=== PATIENT | male | born 1945 | race Caucasian/White ===

== ENCOUNTER 2020-08-25 21:09 | Emergency (ER) | payer OTHER, BC ==
--- OUTSIDE RECORDS SUMMARY | 2020-08-25 21:11 | XMS REPORT | Continuity of Care Document ---
:1945 Author Organization [facility] t Address [address] [place] [address] Care Team Providers Name Role Phone Camryn Manning MD Attending Clinician Problems This patient has no known problems. Allergies, Adverse Reactions, Alerts This patient has no known allergies or adverse reactions. Medications This patient has no known medications. Procedures This patient has no known procedures. Encounters Start End Encounter Admission Attending Care Care Encounter Source Date/Time Date/Time Type Type Clinicians Facility Department ID 2018-09-09 2018-09-09 Office SHANNON Manning [id number] 08:54:44 14:37:39 Visit [facility] [id number] [place] [id number] [place] [id number] Results This patient has no known results.
--- NOTE | 2020-08-25 23:44 | ER ---
Nurse's Notes [facility] Name: Tyrel Ritter Age: 74 yrs Sex: Male : 1945 Arrival Date: 08/25/2020 Time: 21:25 Bed 15 Private MD: Diagnosis: Fever, unspecified Presentation: 08/25 21:45 Chief complaint: Patient states: body aches and chills x 1.5 days. Fever tonight at ca1 102.4F, took NyQuil. Denies cough, congestion. Denies N/V/D. Denies urinary s/s. Coronavirus screen: Client denies travel out of the [place] in the last 14 days. chills, fever, muscle pain, Client presents with at least one sign or symptom that may indicate coronavirus-19. Standard/surgical mask placed on the client. Provider contacted for isolation considerations. Ebola Screen: Patient negative for fever greater than or equal to 101.5 degrees Fahrenheit, and additional compatible Ebola Virus Disease symptoms Patient denies exposure to infectious person. Patient denies travel to an Ebola-affected area in the 21 days before illness onset. No symptoms or risks identified at this time. Initial Sepsis Screen: Does the patient meet any 2 criteria? No. Patient's initial sepsis screen is negative. Does the patient have a suspected source of infection? No. Patient's initial sepsis screen is negative. Risk Assessment: Do you want to hurt yourself or someone else? Patient reports no desire to harm self or others. Onset of symptoms was August 25, 2020. 21:45 Method Of Arrival: Ambulatory ca1 21:45 Acuity: MERARY 4 ca1 Triage Assessment: 23:30 General: Behavior is calm, cooperative, appropriate for age. bs2 Historical: - Allergies: 21:48 PENICILLINS; ca1 - PMHx: 21:48 Hypertensive disorder; GERD; ca1 - Immunization history:: Adult Immunizations up to date, Client reports receiving the 2nd dose of the Covid vaccine, Client reports receiving the 1st dose of the Covid vaccine, Pneumococcal vaccine is up to date, Flu vaccine is up to date. - Social history:: Smoking status: Patient denies any tobacco usage or history of. - Family history:: not pertinent. - Hospitalizations: : No recent hospitalization is reported. Screenin:30 Abuse screen: Denies threats or abuse. Denies injuries from another. Nutritional bs2 screening: No deficits noted. Tuberculosis screening: No symptoms or risk factors identified. Fall Risk None identified. Assessment: 23:30 General: Appears in no apparent distress. comfortable, well groomed, well developed, bs2 well nourished, pt states he just wants to make sure he does not have covid because he has been to 3 funerals in the past few days and is having chills and fevers on and off. . Pain: Denies pain. Cardiovascular: No deficits noted. Respiratory: No deficits noted. GI: No deficits noted. : No deficits noted. EENT: No deficits noted. Derm: No deficits noted. Musculoskeletal: No deficits noted. Vital Signs: 21:45 BP 124 / 83; Pulse 89; Resp 18 S; Temp 98.7(O); Pulse Ox 96% on R/A; Weight 85.28 kg ca1 (R); Height 5 ft. 10 in. (177.80 cm); Pain 5/10; 23:55 BP 123 / 86 RA Sitting (auto/reg); Pulse 76 MON; Resp 16 S; Temp 98.2(O); Pulse Ox 100% bs2 on R/A; Pain 0/10; 21:45 Body Mass Index 26.97 (85.28 kg, 177.80 cm) ca1 ED Course: 21:25 Patient arrived in ED. cf2 21:48 Triage completed. ca1 21:48 Arm band placed on right wrist. ca1 23:27 Lex Peck MD is Attending Physician. rn 23:30 Patient has correct armband on for positive identification. Bed in low position. bs2 23:30 No provider procedures requiring assistance completed. IV discontinued. bs2 08/26 00:10 Sejal Delgadillo, RN is Primary Nurse. bs2 Administered Medications: No medications were administered Outcome: 08/25 23:43 Discharge ordered by . rn 23:55 Discharged to home ambulatory, with family. bs2 23:55 Condition: improved 23:55 Discharge instructions given to patient, significant other, Instructed on discharge instructions, follow up and referral plans. 08/26 00:14 Patient left the ED. bs2 Signatures: Lex Peck MD MD rn Acob, Amie RN RN ca1 Jeancarlos Minor cf2 Sejal Delgadillo, RN RN bs2 Corrections: (The following items were deleted from the chart) 08/25 21:49 21:48 Allergies: No Known Allergies; ca1 ca1
--- NOTE | 2020-08-25 23:44 | EDPHYS ---
Physician Documentation [facility] Name: Tyrel Ritter Age: 74 yrs Sex: Male : 1945 Arrival Date: 08/25/2020 Time: :25 Bed 15 Private MD: ED Physician Lex Peck HPI: 08/25 23:38 This 74 yrs old Male presents to ER via Ambulatory with complaints of Fever, rn COLD SWEATS, BODY ACHES. 23:38 The patient reports fever, not measured (subjective). Onset: The symptoms/episode rn began/occurred last night. Modifying factors: there are no obvious modifying factors. Associated signs and symptoms: Pertinent positives: chills, Pertinent negatives: abdominal pain, altered mental status, chest pain, cough, diarrhea, earache, headache, hemoptysis, runny nose, sinus congestion, sinus drainage, skin rash, shortness of breath, sore throat, swelling, vomiting. Severity of symptoms: At their worst the symptoms were mild in the emergency department the symptoms have improved. The patient has not experienced similar symptoms in the past. The patient has been recently seen by a physician:. Reports fever chills and cold sweats that began last night. states that they have been to 2 funerals in the last 3 days. They are both Covid vaccinated. Patient denies any other symptoms like a pinpoint location of infection. Has prostate problems but denies any urinary symptoms and states full work-up by PCP recently with negative urine this past week. States here to make sure was not Covid, is happy that Covid is negative, and requests that he be discharged home without further evaluation.. Historical: - Allergies: 21:48 PENICILLINS; ca1 - PMHx: 21:48 Hypertensive disorder; GERD; ca1 - Immunization history:: Adult Immunizations up to date, Client reports receiving the 2nd dose of the Covid vaccine, Client reports receiving the 1st dose of the Covid vaccine, Pneumococcal vaccine is up to date, Flu vaccine is up to date. - Social history:: Smoking status: Patient denies any tobacco usage or history of. - Family history:: not pertinent. - Hospitalizations: : No recent hospitalization is reported. ROS: 23:38 Constitutional: Positive for fever and chills Eyes: Negative for injury, pain, redness, rn and discharge, ENT: Negative for injury, pain, and discharge, Neck: Negative for injury, pain, and swelling, Cardiovascular: Negative for chest pain, palpitations, and edema, Respiratory: Negative for shortness of breath, cough, wheezing, and pleuritic chest pain, Abdomen/GI: Negative for abdominal pain, nausea, vomiting, diarrhea, and constipation, Back: Negative for injury and pain, : Negative for injury, bleeding, discharge, and swelling, MS/Extremity: Negative for injury and deformity, Skin: Negative for injury, rash, and discoloration, Neuro: Negative for headache, weakness, numbness, tingling, and seizure. Exam: 23:38 Constitutional: This is a well developed, well nourished patient who is awake, alert, rn and in no acute distress. Head/Face: Normocephalic, atraumatic. Eyes: Conjunctiva and sclera are non-icteric and not injected. Cornea within normal limits. Periorbital areas with no swelling, redness, or edema. ENT: No stridor Neck: Trachea midline, no masses palpated, and no cervical lymphadenopathy. Supple, full range of motion without nuchal rigidity, or vertebral point tenderness. No Meningismus. Cardiovascular: Regular rate and rhythm. No pulse deficits. Respiratory: No increased work of breathing, no retractions or nasal flaring. Abdomen/GI: Soft, non-tender Skin: Warm, dry, no evidence of cellulitis or rash MS/ Extremity: Pulses equal, no cyanosis. Neuro: Awake and alert, GCS 15, oriented to person, place, time, and situation. Motor strength 5/5 in all extremities. Sensory grossly intact. Vital Signs: 21:45 BP 124 / 83; Pulse 89; Resp 18 S; Temp 98.7(O); Pulse Ox 96% on R/A; Weight 85.28 kg ca1 (R); Height 5 ft. 10 in. (177.80 cm); Pain 5/10; 23:55 BP 123 / 86 RA Sitting (auto/reg); Pulse 76 MON; Resp 16 S; Temp 98.2(O); Pulse Ox 100% bs2 on R/A; Pain 0/10; 21:45 Body Mass Index 26.97 (85.28 kg, 177.80 cm) ca1 MDM: 23:27 Patient medically screened. rn 23:38 Differential diagnosis: viral Infection, bacterial infection, UTI. Data reviewed: vital rn signs, nurses notes, lab test result(s), and as a result, I will discharge patient. Counseling: I had a detailed discussion with the patient and/or guardian regarding: the historical points, exam findings, and any diagnostic results supporting the discharge/admit diagnosis, lab results, the need for outpatient follow up, to return to the emergency department if symptoms worsen or persist or if there are any questions or concerns that arise at home. Special discussion: I discussed with the patient/guardian in detail that at this point there is no indication for admission to the hospital. It is understood, however, that if the symptoms persist or worsen the patient needs to return immediately for re-evaluation. ED course: Covid negative, flu negative. Patient was here for Covid testing. No focal symptoms to suggest etiology of symptoms. Recommended at least urine study given prostate problems in the past. Patient declines and asks to be discharged home. Stable vital signs. Will follow up with PCP and given return precautions. 08/25 21:53 Order name: Flu; Complete Time: 23:28 ca1 08/25 23:22 Order name: SARS-COV-2 RT PCR; Complete Time: 23:28 EDMS Administered Medications: No medications were administered Disposition Summary: 08/25/20 23:43 Discharge Ordered Location: Home rn Problem: new rn Symptoms: have improved rn Condition: Stable rn Diagnosis - Fever, unspecified rn Followup: rn - With: Private Physician - When: As needed - Reason: Recheck today's complaints, Re-evaluation by your physician Discharge Instructions: - Discharge Summary Sheet rn - Fever, Adult rn Forms: - Medication Reconciliation Form rn - Thank You Letter rn - Antibiotic oil burner installer - Prescription Opioid Use rn Signatures: Dispatcher [employer] EDMS Lex Peck MD MD rn Acob, Amie RN RN ca1 Corrections: (The following items were deleted from the chart) 21:49 21:48 Allergies: No Known Allergies; ca1 ca1 22:26 21:53 CORONAVIRUS+ ordered. EDSD EDMS
[2020-08-26 00:59] VITALS: BP 124/83; TEMP 98.7; O2SAT 96
== END 2020-08-26 00:14 | disposition home or self-care (01) ==
LOC: ER 21:09
DX: R50.9 Fever, unspecified (principal); I10 Essential (primary) hypertension; Z88.0 Allergy status to penicillin; Z20.822 Contact with and (suspected) exposure to COVID-19
CPT/HCPCS: 87804 ×2; 99281; U0003

== ENCOUNTER 2024-06-11 05:27 | Emergency (ER) | payer MEDICAID, OTHER ==
--- OUTSIDE RECORDS SUMMARY | 2024-06-11 05:29 | XMS REPORT | Clinical Summary ---
Author Name Unknown Organization [facility] Address [address] [place] [address] Care Team Providers Care Bss Solution Architect Name Role Phone Broderick KIRKPATRICK MD, Zurdo Shaver Unavailable Rick Allen MD Primary Care Provider [phone] Allergies Active Allergy Reactions Criticality Noted Date Comments Penicillins Hives,Rash High 03/25/2012 Medications pantoprazole (PROTONIX) 40 mg EC tablet Take by mouth daily. 05/09/2021 Active candesartan-hydr ochlorothiazide (ATACAND HCT) 32-12.5 mg per tablet Take by mouth daily. 08/12/2020 Active aspirin 81 mg chewable tablet Chew daily. Ac tive ascorbic acid (VITAMIN C ORAL) Take by mouth. Active MAGNESIUM ORAL Take by mouth. Active SAW PALMETTO ORAL Take by mouth. Active cyanocobalamin, vitamin B-12, (B-12 DOTS ORAL) Take by mouth. Active cholecalciferol, vitamin D3, (VITAMIN D3 ORAL) Take by mouth. Active Active Problems Problem Noted Date Diagnosed Date History of malignant neoplasm of skin excluding melanoma 05/13/2021 Hypertensive disorder 05/13/2021 Substernal goiter Multinodular goiter Medical History Medical History Date Comments Hypertension 1989 Gastric reflux 2004 Benign prostatic hyperplasia 2019 Social History Tobacco Use Types Packs/Day Years Used Date Smoking Tobacco: Former Cigarettes 0.5 7.8 1 - 09/01/1984 Smokeless Tobacco: Never Alcohol Use Standard Drinks/Week Comments Yes 6 (1 standard drink = 0.6 oz pur e alcohol) Sex and Gender Information Value Date Recorded Sex Assigned at Not on file Legal Sex Male 10:33 AM CDT Gender Identity Not on file Sexual Orientation Not on file Obstetrics History Plan of Treatment Health Maintenance Due Date Last Done Comments Pneumococcal Vaccine: 50+ Years (1 of 1 - PCV) 998 COVID-19 Vaccine ( - season) 2023 Influenza Vaccine (Season Ended) 2024 Care Teams Bss Solution Architect Relationship Specialty Start [place] [id number] [facility] [address] [place] [phone] [email or web address] PCP - External Referring Otolaryngology 04/27/21 Rick Allen MD [address] [place] [phone] [email or web address] PCP - General Head and Neck Surgery 04/27/21
[2024-06-11] MEDS ORDERED: cloNIDine HCL 0.1 MG TAB ONE (06:15)
[2024-06-11 06:29] LABS: PT Prothrombin Time 11.4 SECONDS (10-13.0)
[2024-06-11 06:41] LABS: Absolute Lymphocytes (CBC) 1.1 K/uL (0.7-4.9); Absolute Monocytes 0.3 K/uL (0.1-1.3); Absolute Neutrophil 4.1 K/uL (1.8-8.0); Basophils % 0.1 % (0-1.3); Eosinophils % 0.7 % (0-4.4); Hematocrit 42.5 % (39.6-49.0); Hemoglobin 15.1 g/dL (13.6-17.9); Lymphocytes % 19.7 % (15.3-44.8); MCH 31.1 pg (27.0-35.0); MCHC 35.5 g/dL (32.0-36.0); MCV 87.5 fL (80-100); MPV 8.5 fL (7.6-11.3); Monocytes % 4.7 % (3.3-12.3); Neutrophils % 74.8 % (41.7-73.7); Platelets 173 thou/uL (152-406); RBC Red Blood Cell Count 4.85 M/uL (4.33-5.43); Red Cell Distribution Width 13.4 % (12.1-15.2)
[2024-06-11 06:48] LABS: Albumin 3.6 g/dL (3.4-5.0); Albumin/Globulin Ratio 1.3 (1.1-1.8); Anion Gap 6.6 mEq/L (5.0-15.0); Bilirubin Direct 0.2 mg/dL (0-0.2); Bilirubin Indirect, Calculated 0.5 mg/dL (0.2-0.8); Bilirubin Total 0.7 mg/dL (0.2-1.0); Globulin 2.8 g/dL (2.3-3.5); Magnesium 1.9 mg/dL (1.6-2.4); Potassium 3.6 mEq/L (3.5-5.1); Protein, Total 6.4 g/dL (6.4-8.2); Troponin High Sensitivity 5.6 pg/mL (<58.9)
--- NOTE | 2024-06-11 07:19 | ER ---
Nurse's Notes [facility] Name: Tyrel Ritter Age: 78 yrs Sex: Male : 1945 Arrival Date: 06/11/2024 Time: 05:27 Bed 13 Private MD: Diagnosis: Essential (primary) hypertension;Hypertensive Urgency Presentation: 06/11 05:33 Chief complaint: Patient states: HEADACHE AND ELEVATED BLOOD PRESSURE BP 179/89. ha1 05:33 Coronavirus screen: Client denies travel out of the [place] in the last 14 days. Ebola ha1 Screen: No symptoms or risks identified at this time. Initial Sepsis Screen: Does the patient meet any 2 criteria? No. Patient's initial sepsis screen is negative. Does the patient have a suspected source of infection? No. Patient's initial sepsis screen is negative. Risk Assessment: Do you want to hurt yourself or someone else? Patient reports no desire to harm self or others. Onset of symptoms was June 11, 2024. 05:33 Method Of Arrival: Ambulatory ha1 05:33 Acuity: MERARY 3 ha1 Triage Assessment: 05:33 General: Appears uncomfortable, Behavior is calm, cooperative. Pain: Complains of pain ha1 in HEADACHE Pain currently is 5 out of 10 on a pain scale. Quality of pain is described as aching, pressure, Pain began gradually, 1 hour ago. Neuro: Level of Consciousness is awake, alert, obeys commands, Oriented to person, place, time, situation. Neuro: Reports headache. Cardiovascular: Capillary refill < 3 seconds Patient's skin is warm and dry. Historical: - Allergies: 05:45 PENICILLINS; ha1 - Home Meds: 05:45 Omeprazole Oral [Active]; CARDESARTAN [Active]; Lasix Oral [Active]; ha1 - PMHx: 05:45 GERD; Hypertensive disorder; ha1 - PSHx: 05:45 Cholecystectomy; Knee-Left; ha1 - Immunization history:: Adult Immunizations up to date. - Infectious Disease History:: Denies. - Social history:: Smoking status: Patient/guardian denies using tobacco, the patient reports quitting approximately 50 years ago. - Family history:: not pertinent. Screenin:35 [facility] ED Fall Risk Assessment (Adult) History of falling in the last 3 months, rg5 including since admission No falls in past 3 months (0 pts) Confusion or Disorientation No (0 pts) Intoxicated or Sedated No (0 pts) Impaired Gait No (0 pts) Mobility Assist Device Used No (0 pt) Altered Elimination No (0 pt) Score/Fall Risk Level 0 - 2 = Low Risk Oriented to surroundings, Maintained a safe environment, Hourly rounding (assess needs \T\ fall precautionary measures) done. Abuse screen: Denies threats or abuse. Nutritional screening: No deficits noted. Tuberculosis screening: No symptoms or risk factors identified. Assessment: 05:35 General: Appears in no apparent distress. comfortable, Behavior is calm, cooperative, rg5 appropriate for age. Pain: Complains of pain in head Quality of pain is described as aching. 05:35 Neuro: Level of Consciousness is awake, alert, obeys commands, Oriented to person, rg5 place, time, situation. Cardiovascular: Rhythm is sinus rhythm. Respiratory: Airway is patent Trachea midline Respiratory effort is even, unlabored, Respiratory pattern is regular, symmetrical. GI: Abdomen is round non-distended, Abd is soft and non tender. : No signs and/or symptoms were reported regarding the genitourinary system. EENT: No signs and/or symptoms were reported regarding the EENT system. Derm: Skin is intact, Skin is dry, Skin is normal, Skin temperature is warm. Musculoskeletal: Circulation, motion, and sensation intact. Range of motion: intact in all extremities. 06:31 Reassessment: No changes from previously documented assessment. Patient and/or family rg5 updated on plan of care and expected duration. Pain level reassessed. Patient is alert, oriented x 3, equal unlabored respirations, skin warm/dry/pink. 07:15 Reassessment: Patient appears in no apparent distress at this time. Patient and/or rg5 family updated on plan of care and expected duration. Pain level reassessed. Patient is alert, oriented x 3, equal unlabored respirations, skin warm/dry/pink. Patient states feeling better. Patient states symptoms have improved. 07:35 Reassessment: Patient appears in no apparent distress at this time. Patient and/or db family updated on plan of care and expected duration. Pain level reassessed. Patient is alert, oriented x 3, equal unlabored respirations, skin warm/dry/pink. Vital Signs: 05:33 BP 179 / 89; Pulse 70; Resp 16 S; Temp 98.1; Pulse Ox 98% on R/A; Weight 79.83 kg; ha1 Height 5 ft. 9 in. ; Pain 5/10; 06:25 BP 150 / 80; Pulse 67; Resp 18; Pulse Ox 100% on R/A; Pain 0/10; rg5 06:32 BP 149 / 82; Pulse 66; Resp 17; Pulse Ox 96% on R/A; rg5 07:13 BP 137 / 80; Pulse 69; Resp 16; Pulse Ox 100% ; rg5 05:33 Body Mass Index 25.99 (79.83 kg, 175.26 cm) ha1 05:33 Pain Scale: Adult ha1 06:25 Pain Scale: Adult rg5 [place] Coma Score: 06:34 Eye Response: spontaneous(4). Motor Response: obeys commands(6). Verbal Response: sp4 oriented(5). Total: 15. ED Course: 05:31 Patient arrived in ED. gm2 05:35 Patient has correct armband on for positive identification. Door closed. Noise rg5 minimized. Warm blanket given. 05:35 No provider procedures requiring assistance completed. Inserted saline lock: 20 gauge rg5 in right antecubital area, using aseptic technique. Blood collected. Flushed with 10 mL NS. 05:39 Kenneth Doran MD is Attending Physician. sp4 05:45 Triage completed. ha1 05:47 James Ruiz, SARINA is Primary Nurse. rg5 06:17 XRAY Chest (1 view) In Process Unspecified. EDMS 07:14 Pulse ox on. NIBP on. rg5 07:35 Provided Education on: DISCHARGE AND FOLLOWUP. db 07:35 IV discontinued, intact, bleeding controlled, No redness/swelling at site. db Administered Medications: 06:24 Drug: cloNIDine PO 0.1 mg PO once Route: PO; rg5 06:37 Follow up: Response: No adverse reaction; Blood pressure is lowered rg5 Medication: 05:35 VIS not applicable for this client. rg5 Outcome: 07:19 Discharge ordered by . sp4 07:35 Discharged to home ambulatory, with family, db 07:35 Condition: stable 07:35 Discharge instructions given to patient, family, Instructed on discharge instructions, follow up and referral plans. Prescriptions given X 1, 07:36 Patient left the ED. db Signatures: Dispatcher [employer] EDEllen Villela RN RN ha1 Clarisse Gonzalez RN RN db Kenneth Doran MD MD sp4 Kourtney Carrion 2 James Ruiz RN RN rg5
--- NOTE | 2024-06-11 07:19 | EDPHYS ---
Physician Documentation [facility] Name: Tyrel Ritter Age: 78 yrs Sex: Male : 1945 Arrival Date: 06/11/2024 Time: 05:27 Bed 13 Private MD: ED Physician Kenneth Doran HPI: 06/11 05:39 This 78 yrs old Male presents to ER via Unassigned with complaints of sp4 Headache, High Blood Pressure. 06:32 Patient presents with elevated blood pressure at home 179/88. Reports mild headache. . sp4 Historical: - Allergies: 05:45 PENICILLINS; ha1 - Home Meds: 05:45 Omeprazole Oral [Active]; CARDESARTAN [Active]; Lasix Oral [Active]; ha1 - PMHx: 05:45 GERD; Hypertensive disorder; ha1 - PSHx: 05:45 Cholecystectomy; Knee-Left; ha1 - Immunization history:: Adult Immunizations up to date. - Infectious Disease History:: Denies. - Social history:: Smoking status: Patient/guardian denies using tobacco, the patient reports quitting approximately 50 years ago. - Family history:: not pertinent. ROS: 06:32 Constitutional: Negative for fever, chills, and weight loss, Positive headache, sp4 positive elevated blood pressure. 06:32 All other systems are negative, Exam: 06:32 Constitutional: This is a well developed, well nourished patient who is awake, alert, sp4 and in no acute distress. Head/Face: Normocephalic, atraumatic. Eyes: Pupils equal round and reactive to light, extra-ocular motions intact. Lids and lashes normal. Conjunctiva and sclera are not injected. Cornea within normal limits. Periorbital areas with no swelling, redness, or edema. ENT: Nares patent. No nasal discharge, no septal abnormalities noted. Tympanic membranes are normal and external auditory canals are clear. Oropharynx with no redness, swelling, or masses, exudates, or evidence of obstruction, uvula midline. Mucous membranes moist. Neck: Trachea midline, no thyromegaly or masses palpated, and no cervical lymphadenopathy. Supple, full range of motion without nuchal rigidity, or vertebral point tenderness. Chest/axilla: Normal chest wall appearance and motion. Nontender with no deformity. No lesions are appreciated. Cardiovascular: Regular rate and rhythm with a normal S1 and S2. No gallops, murmurs, or rubs. Normal PMI, no JVD. No pulse deficits. Respiratory: Lungs have equal breath sounds bilaterally, clear to auscultation and percussion. No rales, rhonchi or wheezes noted. No increased work of breathing, no retractions or nasal flaring. Abdomen/GI: Soft, with normal bowel sounds. No distension or tympany. No guarding or rebound. No evidence of tenderness throughout. Back: No spinal tenderness. No costovertebral tenderness. Skin: Warm, dry with normal turgor. Normal color with no rashes, no lesions, and no evidence of cellulitis. MS/ Extremity: Pulses equal, no cyanosis. Neurovascular intact. Full, normal range of motion. Neuro: Awake and alert, GCS 15, oriented to person, place, time, and situation. Cranial nerves II-XII grossly intact. Motor strength 5/5 in all extremities. Sensory grossly intact. Psych: Awake, alert, with orientation to person, place and time. Behavior, mood, and affect are within normal limits 07:02 ECG was reviewed by the Attending Physician. EKG 0 634 normal sinus rhythm sp4 Vital Signs: 05:33 BP 179 / 89; Pulse 70; Resp 16 S; Temp 98.1; Pulse Ox 98% on R/A; Weight 79.83 kg; ha1 Height 5 ft. 9 in. ; Pain 5/10; 06:25 BP 150 / 80; Pulse 67; Resp 18; Pulse Ox 100% on R/A; Pain 0/10; rg5 06:32 BP 149 / 82; Pulse 66; Resp 17; Pulse Ox 96% on R/A; rg5 07:13 BP 137 / 80; Pulse 69; Resp 16; Pulse Ox 100% ; rg5 05:33 Body Mass Index 25.99 (79.83 kg, 175.26 cm) ha1 05:33 Pain Scale: Adult ha1 06:25 Pain Scale: Adult rg5 Graham Coma Score: 06:34 Eye Response: spontaneous(4). Motor Response: obeys commands(6). Verbal Response: sp4 oriented(5). Total: 15. MDM: 05:40 Medical Screening Exam initiated sp4 06:34 Differential diagnosis: cluster headache, migraine, tension headache, vasomotor sp4 headache. Data reviewed: vital signs, nurses notes, lab test result(s), electrolytes, hepatic panel, EKG, radiologic studies, plain films. Consideration of Admission/Observation Escalation of care including admission/observation considered. ED course: Blood pressure has improved. Patient stable for discharge home. ED course: Who will prescribe as needed clonidine. To be used with systolic blood pressure greater than 180. 06/11 05:53 Order name: Basic Metabolic Panel; Complete Time: 07:00 sp4 06/11 05:53 Order name: CBC with Diff; Complete Time: 07:00 sp4 06/11 05:53 Order name: LFT's; Complete Time: 07:00 sp4 06/11 05:53 Order name: Magnesium; Complete Time: 07:00 sp4 06/11 05:53 Order name: NT PRO-BNP; Complete Time: 07:00 sp4 06/11 05:53 Order name: PT-INR; Complete Time: 07:00 sp4 06/11 05:53 Order name: Troponin HS; Complete Time: 07:00 sp4 06/11 05:53 Order name: XRAY Chest (1 view) 4 06/11 05:53 Order name: Cardiac monitoring; Complete Time: 06:13 sp4 06/11 05:53 Order name: EKG - Nurse/Tech; Complete Time: 06:38 sp4 06/11 05:53 Order name: IV Saline Lock; Complete Time: 06:13 sp4 06/11 05:53 Order name: Labs collected and sent; Complete Time: 06:13 sp4 06/11 05:53 Order name: O2 Per Protocol; Complete Time: 06:13 sp4 06/11 05:53 Order name: O2 Sat Monitoring; Complete Time: 06:13 sp4 EC:34 Rate is 64 beats/min. Rhythm is regular, Normal Sinus Rhythm. QRS [place] is Normal. GA sp4 interval is normal. QRS interval is normal. QT interval is normal. No Q waves. T waves are Normal. No ST changes noted. Clinical impression: Normal ECG. Interpreted by me. Reviewed by me. Administered Medications: 06:24 Drug: cloNIDine PO 0.1 mg PO once Route: PO; rg5 06:37 Follow up: Response: No adverse reaction; Blood pressure is lowered rg5 Disposition Summary: 06/11/24 07:19 Discharge Ordered Notes: Location: Home sp4 Problem: new sp4 Symptoms: have improved sp4 Condition: Stable sp4 Diagnosis - Essential (primary) hypertension sp4 - Hypertensive Urgency sp4 Followup: sp4 - With: Private Physician - When: 7 - 10 days - Reason: Recheck today's complaints Discharge Instructions: - Discharge Summary Sheet sp4 - Hypertension, Adult, [id number] sp4 Forms: - Patient Portal Instructions sp4 Prescriptions: - clonidine HCl 0.1 mg Oral tablet - take 1 tablet ORAL route every 12 hours PRN Systolic Blood Pressure > 180; sp4 60 tablet; Refills: 0, Product Selection Permitted Signatures: Dispatcher [employer] EDMS Ellen Zaman, RN RN ha1 Kenneth Doran MD MD sp4 James Ruiz RN RN rg5 Corrections: (The following items were deleted from the chart) 05:54 05:54 BASIC METABOLIC PANEL+C.LAB.BRZ ordered. EDMS EDMS 05:54 05:54 CBC+H.LAB.BRZ ordered. EDMS EDMS 05:54 05:54 HEPATIC FUNCTION+C.LAB.BRZ ordered. EDMS EDMS 05:54 05:54 MAGNESIUM+C.LAB.BRZ ordered. EDMS EDMS 05:54 05:54 PROBNP+C.LAB.BRZ ordered. EDMS EDMS 05:54 05:54 PROTIME (+INR)+COAG.LAB.BRZ ordered. EDMS EDMS 05:54 05:54 Troponin High Sensitivity+C.LAB.BRZ ordered. EDMS EDMS 05:54 05:54 Chest Single View+RAD.RAD.BRZ ordered. EDMS EDMS
--- NOTE | 2024-06-11 07:44 | RAD REPORT ---
EXAMINATION: ONE VIEW CHEST XR CLINICAL INDICATION: Male, 78 years old.,CHEST PAIN TECHNIQUE: Frontal chest projection is submitted. Examination is limited by patient positioning and t echnique. COMPARISON: 09/04/2023 FINDINGS: The lungs are grossly clear although suboptimal inspiratory effort somewhat limits evaluation. No pn eumothorax or sizable effusion. The heart is normal in size. Mediastinal contours are unremarkable. IMPRESSION: No acute intrathoracic abnormalities.
[2024-06-11 14:49] VITALS: TEMP 98.1
[2024-06-11 15:03] VITALS: BP 137/80; O2SAT 100
--- NOTE | 2024-06-12 11:45 | EKG ---
Test Date: 2024-06-11 Test Time: 06:34:11 Sculpture Conservator: DEEPIKA MEASUREMENT RESULTS: Intervals: Rate: 64 VA: 156 QRSD: 80 QT: 410 QTc: 422 [place]: P: 21 VA: 156 QRS: 1 T: 7 INTERPRETIVE STATEMENTS: Normal sinus rhythm Normal ECG Compared to ECG 09/04/2023 19:16:11 No significant changes Electronically Signed On 06-12-24 11:41:53 CDT by Mikey Lujan
== END 2024-06-11 07:36 | disposition home or self-care (01) ==
LOC: ER 05:27
DX: I16.0 Hypertensive urgency (principal)
CPT/HCPCS: 36415; 71045; 80048; 80076; 83735; 83880; 84484; 85025; 85610; 93005; 99284